=== PATIENT | male | born 1995 | race Caucasian/White ===

== ENCOUNTER → 2023-12-12 13:29 | Outpatient (REF) | payer OTHER, SELFPAY | LOC: MRI 3T 13:29 | PROVIDERS: ATTENDING PHYSICIAN Orthopaedic Surgery Hand Surgery; FAMILY PHYSICIAN Family Medicine | DX: S63.501A Unspecified sprain of right wrist, initial encounter (principal) | CPT/HCPCS: 25246; 73115; 73222 ==

== ENCOUNTER → 2024-05-16 10:53 | Outpatient (REF) | payer OTHER, SELFPAY ==
[2024-05-16 12:17] LABS: % Basophils 0.5 % (0-2); % Eosinophils 1.8 % (0-6); % Immature Granulocytes 0.3 % (0-0.5); % Lymphocytes 31.3 % (20.5-51.1); % Monocytes 9.5 % (1.7-9.3); % Neutrophils 56.6 % (42.2-75.2); Absolute Eosinophils 0.1 10^3/uL (0-0.7); Absolute Lymphocytes 1.2 10^3/uL (1.2-3.4); Absolute Monocytes 0.4 10^3/uL (0.1-0.6); Absolute Neutrophils 2.2 10^3/uL (1.4-6.5); Hematocrit 44.6 % (39.0-52.0); Hemoglobin 14.6 g/dL (13.0-18.0); Mean Corp Hgb Conc. 32.7 g/dL (33.0-37.0); Mean Corpuscular Hgb 31.1 pg (27.0-31.0); Mean Corpuscular Volume 95.1 fL (80.0-94.0); Mean Platelet Volume 8.9 fL (7.4-10.4); Nucleated Red Blood Cells % 0 % (-); Platelet Count 261 10^3/uL (130-400); Red Blood Cell Count 4.69 10^6/uL (4.70-6.10); Red Cell Dist. Width 12.4 % (11.5-14.5); White Blood Cell Count 3.8 10^3/uL (4.8-10.8)
[2024-05-16 12:44] LABS: C-Reactive Protein < 5.00 mg/L (0.0-10.00)
[2024-05-16 12:59] LABS: Erythrocyte Sed Rate 3 mm/hour (0-20)
[2024-05-18 17:05] LABS: ANA, IgG Reflex to HEp-2 None Detected (None Detected)
[2024-05-18 17:08] LABS: CCP Antibody IgG/IgA 7 Units (0-19)
== END ==
LOC: REG 10:53
PROVIDERS: ATTENDING PHYSICIAN Orthopaedic Surgery Hand Surgery; FAMILY PHYSICIAN Family Medicine
DX: M25.531 Pain in right wrist (principal)
CPT/HCPCS: 36415; 82728; 85025; 85652; 86038; 86140; 86200; 86430; 86618